=== PATIENT | male | born 1930 | race Caucasian/White ===

== ENCOUNTER → 2018-12-17 08:56 | Outpatient (CLI) | payer MEDICARE, BC ==
[2015-04-08 16:10] VITALS: BMI 25.1
[~2018-12-17 08:56] MED LIST: ADVAIR 250/501 DISK INH; BAYER CHEWABLE81 MG PO; NUPRIN200 MG PO; OSTEO BI-FLEX1 EAC1; SINGULAIR10 MG PO
== END | disposition home or self-care (01) ==
LOC: D.HCCARDIO 08:56
PROVIDERS: ATTEND Internal Medicine Cardiovascular Disease
DX: I34.0 Nonrheumatic mitral (valve) insufficiency (principal)